=== PATIENT | female | born 1985 | race Caucasian/White ===

== ENCOUNTER 2017-06-24 11:27 | Emergency (ER) | payer SELFPAY ==
[~2017-06-24] VITALS: Ht 165.1 cm; Wt 65.3 kg
[2017-06-24 11:27] VITALS: BP 111/61
[2017-06-24] MEDS ORDERED: IBUPROFEN 600 MG TABLET PO STA (12:23)
[2017-06-24] MEDS ORDERED: IBUPROFEN 600 MG TABLET PO ONE (12:29)
== END 2017-06-24 12:42 | disposition home or self-care (01) ==
LOC: ER 11:29
DX: S33.5XXA Sprain of ligaments of lumbar spine, initial encounter (principal); V43.52XA Car driver injured in collision with other type car in traffic accident, initial encounter; Y93.89 Activity, other specified; Y92.488 Other paved roadways as the place of occurrence of the external cause; Y99.8 Other external cause status
CPT/HCPCS: 99283; A4606; Z7610